=== PATIENT | female | born 1975 | race Caucasian/White ===

== ENCOUNTER → 2017-10-18 11:00 | Oncology outpatient (ONC) | payer OTHER, SELFPAY ==
[2017-10-16 10:20] VITALS: BP 107/58; PULSE 74; RESP 16; TEMP 36.5; O2SAT 100
[2017-10-16] MEDS: METOCLOPRAMIDE 10 MG in SODIUM CHLORIDE 0.9% 50 ML 208 ML IV (11:19)
[2017-10-16] MEDS: DIHYDROERGOTAMINE 1 MG/ML AMPUL IV (12:10)
[2017-10-16] MEDS: MAGNESIUM SULFATE 1 GM in SODIUM CHLORIDE 0.9% 100 ML 102 ML IV (13:02)
[2017-10-16] MEDS: VALPROIC ACID 1,000 MG in SODIUM CHLORIDE 0.9% 50 ML 60 ML IV (14:02)
--- NOTE | 2017-10-16 15:03 | PC.NURSE ---
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 She reported h/a 4 at start of treatment. [facility]G infused over 20, minutes and experienced mild nausea, no emesis. Kept up fluids. Mother present for entire treatment. At end of day headache down to a 3 and nausea gone. RTC in [place] for 2nd dose.
[2017-10-17 11:33] VITALS: BP 90/44; PULSE 74; RESP 16; TEMP 36.7
[2017-10-17] MEDS: METOCLOPRAMIDE 10 MG in SODIUM CHLORIDE 0.9% 50 ML 208 ML IV (11:51)
[2017-10-17] MEDS: SODIUM CHLORIDE 0.9% IV (12:30)
[2017-10-17] MEDS: DIHYDROERGOTAMINE IV (12:30)
[2017-10-17] MEDS: VALPROIC ACID IV (12:30)
[2017-10-18 11:13] VITALS: BP 98/69; PULSE 73; RESP 16; TEMP 36.7; O2SAT 100
[2017-10-18] MEDS: METOCLOPRAMIDE 10 MG in SODIUM CHLORIDE 0.9% 50 ML 208 ML IV (11:33)
[2017-10-18] MEDS: DIHYDROERGOTAMINE IV (12:11)
[2017-10-18] MEDS: VALPROIC ACID IV (12:11)
[2017-10-18] MEDS: SODIUM CHLORIDE 0.9% IV (12:11)
== END ==
PROVIDERS: Visit Provider Specialist
DX: G43.701 Chronic migraine without aura, not intractable, with status migrainosus (principal)
CPT/HCPCS: 96365; 96367; 96374; 96375; 96413; J1110; J2765; J3475